=== PATIENT | female | born 1980 | race Native Hawaiian/Other Pacific Islander ===

== ENCOUNTER 2016-12-16 10:13 | Outpatient (CLI) | payer OTHER ==
[2016-12-16 11:16] LABS: PLATELET COUNT 388 K/uL (152-353)
[2016-12-16 11:48] LABS: SODIUM 140 mmol/L (136-145)
[2016-12-16 12:03] LABS: PARTIAL THROMBOPLASTIN TIME 25.3 SECONDS (24.5-33.6)
== END 2016-12-16 19:22 | disposition home or self-care (01) ==
LOC: LABW 10:13
PROVIDERS: Family Medicine
DX: R23.8 Other skin changes (principal); I49.8 Other specified cardiac arrhythmias; E66.3 Overweight; Z83.3 Family history of diabetes mellitus; N80.8 Other endometriosis; E55.9 Vitamin D deficiency, unspecified; Z41.8 Encounter for other procedures for purposes other than remedying health state
CPT/HCPCS: 36415; 80053; 80061; 81000; 82306; 83036; 84439; 84443; 85027; 85610; 85730; 93005

== ENCOUNTER 2020-09-20 16:22 | Outpatient (CLI) | payer OTHER | END 2020-09-20 21:39 | disposition home or self-care (01) | LOC: RAD 16:22 | PROVIDERS: ATTEND Family Medicine | DX: M25.562 Pain in left knee (principal) ==

== ENCOUNTER 2020-10-02 16:36 | Observation (INO) | payer OTHER ==
[~2020-10-02] VITALS: Ht 139.7 cm; Wt 81.4 kg
[2020-10-02 18:13] LABS: PLATELET COUNT 328 K/uL (152-353)
[2020-10-02 18:26] LABS: POTASSIUM 3.7 mmol/L (3.6-5.2)
[2020-10-02 19:08] VITALS: BP 125/86; TEMP 98.8; Ht 139.7 cm; Wt 81.4 kg
[2020-10-02] MEDS ORDERED: CETIRIZINE5 MG PO (19:58)
[2020-10-02 20:00] VITALS: BP 126/93; TEMP 99.1
[2020-10-02] MEDS ORDERED: LISI5TAB10 PO (20:00)
[2020-10-02] MEDS ORDERED: FLONASE AL50 MCG/ACT INH (20:00)
[2020-10-02] MEDS ORDERED: DICL1GEL2 TOP (20:01)
[2020-10-02] MEDS ORDERED: IBU800 MG PO (20:06)
[2020-10-02] MEDS ORDERED: CARAFATE1 GM PO (20:07)
[2020-10-02] MEDS ORDERED: LOESTRIN F1 PO (20:08)
[2020-10-03 01:02] VITALS: BP 113/75; TEMP 98.8
[2020-10-03 04:00] VITALS: BP 111/74; TEMP 98.7
[2020-10-03 08:00] VITALS: BP 115/84; TEMP 98.4
--- NOTE | 2020-10-03 08:30 | NUR ---
REPORTED TO DR. MCKEON LABS AND PT CONDITION THIS AM, DR. MCKEON ORDERS TO ADD CDIFF TO STOOL CULUTRE AND ORDER FOR CBC AND CMP NOW, DR. MCKEON STATES IF PT IS TOLERATING CLEAR LIQUIDS THEN ADVANCE DIET, DR. MCKEON STATES SHE WILL MAKE AROUNDS AT [facility], NO FURTHER ORDERS GIVEN AT THIS TIME
[2020-10-03 09:06] LABS: PLATELET COUNT 266 K/uL (152-353)
[2020-10-03 09:30] LABS: POTASSIUM 3.6 mmol/L (3.6-5.2)
--- NOTE | 2020-10-03 10:34 | NUR ---
OFFERED TO PT CITLALY, PT STATES SHE WOULD NOT LIKE ANYTHING TO EAT AT THIS TIME DUE TO IT MAKING HER STOMACH CRAMP AND CAUSING DIARRHEA, PT STATES SHE IS NOT IN ANY PAIN AT THIS TIME, SHE STATES SHE ONLY GETS NAUSEATED WHEN SHE GETS UP AND MOVES, AROUND, PT LYING IN LF, NAD NOTED, NO FURTHER NEEDS AT THIS TIME, WILL CONTINUE TO MONITOR, CALL LIGHT WITHIN REACH
[2020-10-03 12:00] VITALS: BP 116/76; TEMP 98.6
[2020-10-03 16:00] VITALS: BP 127/84; TEMP 98.3
--- NOTE | 2020-10-03 16:45 | NUR ---
PT STATES SHE IS NOT HAVING ABDOMINAL CRAMPING ANYMORE BUT SHE STATES HER BOWELS ARE STILL HYPERACTIVE AND CONTINUES TO HAVE WATERY DIARRHEA, PT HAS NO NEEDS AT THIS TIME, CALL LIGHT WITHIN REACH, FAMILY AT BEDSIDE WITH PT, WILL CONTINUE TO MONITOR
--- NOTE | 2020-10-03 19:50 | NUR ---
PT AWAKE, ALERT, AND ORIENTED SITTING UP IN BED WATCHING TV WITH NO S/S OF ACUTE DISTRESS NOTED. RESP RATE NONLABORED, ON ROOM AIR, 22G IV INTACT TO L FA WITH NS INFUSING AT 125ML/HR WITH NO PROBLEMS NOTED TO SITE, WILL MONITOR CLOSELY, RAILS UP, BED IN LOW POSITION, CALL LIGHT IN REACH, ENCOURAGED TO CALL NEEDED.
[2020-10-03 20:00] VITALS: BP 124/83; TEMP 98.7
--- NOTE | 2020-10-03 22:51 | NUR ---
PT AWAKE WATCHING TV WITH NO ACUTE DISTRESS NOTED, RESP RATE NONLABORED, ON ROOM AIR, IV INTACT TO L ARM WITH NS INFUSING AT 125ML/HR. C/O CONSTANT HEADACHE THAT IS "DULL THEN SHARP" RATES PAIN AN "8" ON SCALE, REQUESTS TYLENOL. GAVE TYLENOL 650MG PO PRN. WILL MONITOR, RAILS UP, BED IN LOW POSITION, CALL LIGHT IN REACH, ENCOURAGED TO CALL NEEDED.
--- NOTE | 2020-10-03 23:22 | NUR ---
PT STATES PRN TYLENOL DECREASED HER HEADACHE TO A "4" FROM AN 8. NO REACTIONS NOTED. WILL MONITOR CLOSELY, RAILS UP, BED IN LOW POSITION, ENCOURAGED TO CALL NEEDED, CALL LIGHT IN REACH. PT WATCHING TV WITH NO S/S OF DISTRESS NOTED.
[2020-10-04] VITALS: BP 131/94; TEMP 98.6
--- NOTE | 2020-10-04 01:45 | NUR ---
RESTING WITH EYES CLOSED, NO S/S OF PAIN OR DISTRESS NOTED, IV INTACT WITH FLUID ONGOING, RESP RATE NONLABORED, WILL MONITOR, RAILS UP, BED IN LOW POSITION.
--- NOTE | 2020-10-04 03:00 | NUR ---
RESTING WITH EYES CLOSED, NO S/S OF PAIN OR DISTRESS NOTED, IV INTACT WITH FLUID ONGOING, RESP RATE NONLABORED, WILL MONITOR, RAILS UP, BED IN LOW POSITION, CALL LIGHT IN REACH.
[2020-10-04 04:00] VITALS: BP 135/90; TEMP 97.8
--- NOTE | 2020-10-04 04:15 | NUR ---
PT HAS TOLERATED CLEAR LIQUIDS DURING SHIFT PER PT.
--- NOTE | 2020-10-04 04:20 | NUR ---
CALL DR. MCKEON ON PHONE. INFORMED HER THAT PT HAS HEADACHE AND DOES NOT WANT TYLENOL FOR IT(STATES ULTRAM MAKES HER THROW UP). PT STATES SHE HAS NOT HAS LISINOPRIL 5MG HOME MED SINCE FRIDAY AND SHE THINKS IT IS HER B/P. CURRENT B/P IS 135/90 PULSE 84. NEW TELEPHONE ORDER FOR TYLENOL #3 1 TAB ONE DOSE NOW AND THEN 1 TAB PO Q 4 HOURS PRN PAIN/HEADACHE, GIVE LISINOPRIL 5MG PO X 1 DOSE NOW T.O. R&V DR. Gordon MCKEON/ROGER ZAMORA RN.
--- NOTE | 2020-10-04 04:47 | NUR ---
GAVE PT TYLENOL #3 ONE TAB PO PER NEW ORDER FOR C/O CONSTANT HEADACHE THAT IS "DULL THEN SHARP" RATES PAIN A "6" ON SCALE. ALSO GAVE ONE TIME DOSE OF LISINOPRIL 5MG PO PER NEW ORDER CHARTED FROM DR. Gordon MCKEON. WILL MONITOR CLOSELY, RAILS UP, BED IN LOW POSITION, ENCOURAGED TO CALL NEEDED.
--- NOTE | 2020-10-04 05:20 | NUR ---
RESTING ON L SIDE IN BED WITH EYES CLOSED, NO S/S OF PAIN OR DISTRESS NOTED, RESP RATE NONLABORED, IV INTACT WITH FLUID ONGOING, NO S/S OF REACTION TO TYLENOL #3 GIVEN AND NO S/S OF PAIN. WILL MONITOR CLOSELY, RAILS UP, BED IN LOW POSITION, CALL LIGHT IN REACH.
[2020-10-04 08:00] VITALS: BP 124/83; TEMP 97.9
--- NOTE | 2020-10-04 11:30 | NUR ---
DR. MCKEON IN TO SEE PATIENT. NEW ORDERS WRITTEN. SHE WILL RETURN TO SEE PATIENT LATER THIS AFTERNOON.
[2020-10-04 12:00] VITALS: BP 119/85; TEMP 98.4
[2020-10-04 16:00] VITALS: BP 135/95; TEMP 98.3
--- NOTE | 2020-10-04 18:40 | NUR ---
DR MCKEON CALLED WITH ORDERS TO D/C PT. DC INSTRUTIONS AND EDUCATION GIVEN. IV D/C WITH CATH INTACT. PT VERBALIZES UNDERSTANDING.
--- NOTE | 2020-10-04 18:42 | NUR ---
PRESCRIPTIONS CALLED TO [facility]. OMNICEF,OMEPRAZOLE, CARAFATE. PT EDUCATED ON NEW MEDS.
--- NOTE | 2020-10-04 18:53 | NUR ---
REQUESTED A WORK EXCUSE FROM DR. MCKEON. DR. MCKEON APPROVED AN EXCUSE UNTIL 10/11/20
== END 2020-10-04 19:00 | disposition home or self-care (01) ==
LOC: MED/SURG 16:36
PROVIDERS: ADMIT Family Medicine; ATTEND Family Medicine
DX: K52.89 Other specified noninfective gastroenteritis and colitis (principal); E86.0 Dehydration; R19.7 Diarrhea, unspecified; I10 Essential (primary) hypertension; E78.49 Other hyperlipidemia; K21.9 Gastro-esophageal reflux disease without esophagitis; D64.89 Other specified anemias; R10.9 Unspecified abdominal pain; J01.80 Other acute sinusitis
CPT/HCPCS: 80053; 81000; 82272; 85027; 87015; 87045; 87324; 87328; 87329; 87425; 87449; 87635; 87899; 96361; 96365; 96375; 99220; G0378; G0379; J0696; J3490; U0003

== ENCOUNTER 2021-02-22 15:12 | Outpatient (CLI) | payer OTHER ==
[~2021-02-22 15:12] MED LIST: CARAFATE1 GM PO; CETIRIZINE5 MG PO; DICL1GEL2 TOP; FLONASE AL50 MCG/ACT INH; IBU800 MG PO; LISI5TAB10 PO; LOESTRIN F1 PO
== END 2021-02-22 20:20 | disposition home or self-care (01) ==
LOC: RAD 15:12
PROVIDERS: ATTEND Family Medicine
DX: M79.672 Pain in left foot (principal); M25.572 Pain in left ankle and joints of left foot

== ENCOUNTER 2021-05-24 11:00 | Outpatient (CLI) | payer OTHER | END 2021-05-24 19:10 | disposition home or self-care (01) | LOC: LABW 11:00 | PROVIDERS: ATTEND Family Medicine | DX: R68.89 Other general symptoms and signs (principal) | CPT/HCPCS: 87502 ==

== ENCOUNTER 2023-01-22 15:37 | Emergency (ER) | payer OTHER ==
[~2023-01-22] VITALS: Ht 139.7 cm; Wt 80.7 kg
[2023-01-22 15:44] VITALS: TEMP 98.6
[2023-01-22 16:07] LABS: PLATELET COUNT 336 K/uL (152-353)
[2023-01-22 16:22] LABS: POTASSIUM 4.3 mmol/L (3.6-5.2)
[2023-01-22 17:10] VITALS: BP 133/97
== END 2023-01-22 17:10 | disposition home or self-care (01) ==
LOC: ED 15:37
PROVIDERS: Family Medicine
DX: R51.9 Headache, unspecified (principal); I10 Essential (primary) hypertension
CPT/HCPCS: 36415; 80053; 84484; 85027; 93005; 96374; 96375; 99284; J1100; J1885